=== PATIENT | male | born 2000 | race Caucasian/White ===

== ENCOUNTER 2022-02-11 03:20 | Emergency (ER) | payer OTHER ==
[~2022-02-11] VITALS: Ht 180.3 cm; Wt 72.6 kg
--- NOTE | 2022-02-11 03:33 | NUR ---
[facility] at bedside to speak with patient
--- NOTE | 2022-02-11 03:44 | NUR ---
Dr. Ayala at bedside
[2022-02-11] MEDS ORDERED: HYDROMORPHONE 1 MG/1 ML DISP.SYRIN ONE (04:09)
[2022-02-11] MEDS ORDERED: ONDANSETRON ODT 4 MG TAB.RAPDIS ONE (04:09)
[2022-02-11] MEDS ORDERED: ONDANSETRON ODT 4 MG TAB.RAPDIS SL ONE (04:15)
[2022-02-11] MEDS ORDERED: HYDROMORPHONE 1 MG/1 ML DISP.SYRIN IM ONE (04:15)
[2022-02-11] MEDS ORDERED: IOHEXOL 300MG/ML 100 ML INFUS..BTL ONE (05:58)
[2022-02-11] MEDS ORDERED: IV NORMAL SALINE 250 ML IV ONE (05:59)
[2022-02-11] MEDS ORDERED: SWABABLE VALVE TRANSFER SET EA MC ONE (05:59)
[2022-02-11] MEDS ORDERED: HYDR-3980 PO (06:58)
--- NOTE | 2022-02-11 07:56 | NUR ---
PT WAS D/C'd TO HOME. D/C INSTRUCTIONS GIVEN TO THE PT BY DR CHAPMAN.
[2022-02-11 07:57] VITALS: BP 128/71
== END 2022-02-11 08:13 | disposition home or self-care (01) ==
LOC: ER 03:21
DX: S16.1XXA Strain of muscle, fascia and tendon at neck level, initial encounter (principal); S20.211A Contusion of right front wall of thorax, initial encounter; V49.40XA Driver injured in collision with unspecified motor vehicles in traffic accident, initial encounter; Y92.414 Local residential or business street as the place of occurrence of the external cause
CPT/HCPCS: 99285; 71260; 71101; 72125; 74177; 96372; Q9967; J1170; A4663; Q0162